=== PATIENT | female | born 1980 | race Caucasian/White ===

== ENCOUNTER 2024-07-06 10:26 | Emergency (ER) | payer MEDICAID ==
[~2024-07-06] VITALS: Ht 162.6 cm; Wt 57.2 kg
[2024-07-06 10:30] VITALS: TEMP 98.7
[2024-07-06 11:53] VITALS: BP 140/75; PULSE 77; RESP 16; O2SAT 98
[2024-07-06] MEDS ORDERED: PRED5TAB PO (11:55)
[2024-07-06] MEDS ORDERED: PSEU-303 PO (11:55)
[2024-07-06] MEDS ORDERED: FLUT16SP2 BOTHNARES (11:55)
[2024-07-06] MEDS ORDERED: GUAI120015 PO (11:55)
== END 2024-07-06 11:55 | disposition home or self-care (01) ==
LOC: ER 10:28
DX: H69.83 Other specified disorders of Eustachian tube, bilateral (principal); R51.9 Headache, unspecified; G89.29 Other chronic pain; H92.03 Otalgia, bilateral
CPT/HCPCS: 70486; 99284

== ENCOUNTER 2025-06-25 13:58 | Outpatient (CLI) | payer MEDICAID ==
[~2025-06-25 13:58] MED LIST: FLUT16SP2 BOTHNARES; GUAI120015 PO; PRED5TAB PO; PSEU-303 PO
[2025-06-25] MEDS ORDERED: GADOTERATE MEGLUMINE 7.5 MMOL/15 ML VIAL IV ONE (17:37)
--- NOTE | 2025-06-25 19:19 | RADIOLOGY REPORT ---
PROCEDURE: MR MRI HEAD INDICATION: UNSPECIFIED SENSORINEURAL HEARING LOSS Exam Date: 06/25/2025 03:35 PM COMPARISON: None TECHNIQUE: MRI of the IAC without and with 15 cc clariscan intravenous contrast. FINDINGS: High resolution images demonstrate no evidence of mass lesion within the internal auditory canals or cerebellopontine angle cisterns. There is normal course and caliber of the bilateral seventh and eig hth cranial nerve complexes. There is grossly preserved fluid signal within the inner ear structures . No abnormal restricted diffusion is identified with attention to the temporal bones. The mastoid air cells are clear. Diffusion weighted images of the visualized brain demonstrate no evidence of acute infarction. There is no evidence of acute intracranial hemorrhage, extra-axial collection, mass effect, midline shift, herniation or hydrocephalus in the visualized brain. Mild cerebral atrophy. The signal intensitie s of the visualized brain parenchyma are within normal limits. There are no abnormal areas of intra cranial enhancement. The major vascular flow voids are present. The visualized paranasal sinuses a re clear. The surrounding soft tissues and osseous structures are otherwise unremarkable. IMPRESSION: 1. MRI of the internal auditory canals within normal limits. Mild cerebral atrophy. No acute intracra nial abnormality. HS:Y
== END 2025-06-25 23:59 | disposition home or self-care (01) ==
LOC: MRI 13:58
PROVIDERS: ATTEND Physician Assistant
DX: H90.5 Unspecified sensorineural hearing loss (principal)
CPT/HCPCS: 70553; A9575